=== PATIENT | female | born 1995 | race Caucasian/White ===

== ENCOUNTER 2025-02-24 10:18 | Inpatient (IN) | payer OTHER, SELFPAY ==
[2025-02-23 11:24] LABS: Hematocrit 36.4 % (34.9-44.5); Hemoglobin 12.0 g/dL (12.0-15.5); Platelet Count 480 10x3/uL (150-450)
[2025-02-23 12:13] LABS: Syphilis Antibody Index 0.09 S/CO (<1.00 Non-Reactive)
[2025-02-23 12:15] LABS: Hep B Surf Ag Non-Reactive S/CO (NonReactive)
[2025-02-24] MEDS ORDERED: Acetaminophen 500 MG TAB PO PRN (10:42)
[2025-02-24] MEDS ORDERED: Ondansetron PF 4 MG/2 ML Vial IVP PRN ×4 (10:42→15:48)
[2025-02-24] MEDS ORDERED: Diphenoxylate HCl/Atropine Tablet PO PRN ×2 (10:42)
[2025-02-24] MEDS ORDERED: Bicitra 30 ML UDCUP PO PRN (10:42)
[2025-02-24] MEDS ORDERED: Carboprost 250 MCG/ML AMP IM PRN (10:42)
[2025-02-24] MEDS ORDERED: Methylergonovine 0.2 MG/ML VIAL IM PRN ×2 (10:42→15:48)
[2025-02-24] MEDS ORDERED: hydrALAZINE 20 MG/ML VIAL SLOW IVP PRN ×2 (10:42→15:48)
[2025-02-24] MEDS ORDERED: Famotidine/PF 20 mg/2ml Vial SLOW IVP PRN (10:42)
[2025-02-24] MEDS ORDERED: Tranexamic Acid 1,000 MG/10 ML VIAL IVP PRN (10:42)
[2025-02-24] MEDS ORDERED: Oxytocin 30 units/NS 500 ML 500 ML IV SCH ×2 (10:45→15:48)
[2025-02-24 11:28] VITALS: BMI 34.7
[2025-02-24] MEDS ORDERED: Meperidine HCl/PF 25 MG (1 mL) VIAL SLOW IVP PRN (15:01)
[2025-02-24] MEDS ORDERED: diphenhydrAMINE 50 MG/ML VIAL IVP PRN (15:01)
[2025-02-24] MEDS ORDERED: HYDROmorphone 0.5 MG/0.5 ML SYRINGE SLOW IVP PRN (15:01)
[2025-02-24] MEDS ORDERED: Communication Order-Pharmacy FS SCH (15:15)
[2025-02-24] MEDS: Ketorolac Tromethamine 30 MG (1 mL) VIAL IVP SCH (15:24)
[2025-02-24] MEDS ORDERED: diphenhydrAMINE 25 MG CAP PO PRN (15:48)
[2025-02-24] MEDS ORDERED: Lanolin Ointment 7 GM TUBE TOP PRN (15:48)
[2025-02-24] MEDS: Ferrous Sulfate 325 MG TAB PO SCH (22:57)
[2025-02-25] MEDS: Ketorolac Tromethamine 30 MG (1 mL) VIAL IVP PRN (01:11)
[2025-02-25] MEDS: Ketorolac Tromethamine 30 MG (1 mL) VIAL ONE (01:11)
[2025-02-25 04:08] LABS: Hematocrit 30.8 % (34.9-44.5); Hemoglobin 10.1 g/dL (12.0-15.5); Mean Corpuscular Hemoglobin 27.2 pg (27.0-33.0); Mean Corpuscular Volume 82.8 fL (81.6-98.3); Platelet Count 382 10x3/uL (150-450); Red Blood Cell (RBC) Count 3.72 10x6/uL (3.90-5.03); White Blood Cell (WBC) Count 10.32 10x3/uL (3.5-10.5)
[2025-02-25] MEDS: PHENYLEPHRINE-NS 100 MCG/ML 10 ML SYRINGE ONE (04:30)
[2025-02-25] MEDS: Ondansetron PF 4 MG/2 ML Vial ONE (04:30)
[2025-02-25] MEDS: Oxytocin 10 UNITS/ML VIAL ONE (04:30)
[2025-02-25] MEDS: Famotidine/PF 20 mg/2ml Vial ONE (04:31)
[2025-02-25] MEDS: CEFAZOLIN 2 GM VIAL ONE (04:31)
[2025-02-25] MEDS: HYDROcodone/Acetaminophen 5/325 mg Tablet PO PRN ×2 (05:50→11:00)
[2025-02-25] MEDS: Boostrix 0.5 ML (Tdap) VIAL (>/=7 yrs of age) IM ONE (11:43)
[2025-02-25] MEDS: Simethicone Chewable 80 MG TAB PO PRN (19:36)
[2025-02-25] MEDS: Ibuprofen 800 MG TAB PO SCH (21:05)
[2025-02-26 11:42] VITALS: BP 114/55; TEMP 98.4
== END 2025-02-26 15:00 | disposition home or self-care (01) | DRG 788 ==
LOC: CSHLD 10:18 → CSHPP 15:50
PROVIDERS: ADMIT Family Medicine; ATTEND Family Medicine
DX: O34.211 Maternal care for low transverse scar from previous cesarean delivery (principal); O24.425 Gestational diabetes mellitus in childbirth, controlled by oral hypoglycemic drugs; O76 Abnormality in fetal heart rate and rhythm complicating labor and delivery; Z3A.39 39 weeks gestation of pregnancy; Z37.0 Single live birth; Z79.84 Long term (current) use of oral hypoglycemic drugs; Z79.899 Other long term (current) drug therapy; Z98.890 Other specified postprocedural states
CPT/HCPCS: 36415; 36416; 51702; 82951; 85014; 85018; 85027; 85049; 86780; 86850; 86900; 86901; 87340; J1308; J1885; J2250; J2274; J2405; J2590; J3010; J7120